=== PATIENT | female | born 2005 | race Caucasian/White ===

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

== ENCOUNTER 2023-01-03 09:00 | Outpatient (RCR) | payer OTHER, SELFPAY ==
--- NOTE | 2023-01-03 11:10 | BH.SGPN.GN ---
Behaviors/Verbalizations/Mental Status: []Client alert and oriented, casually dressed and groomed. Eye contact poor. Motor activity appropriate. Speech within normal limits. Affect constricted, mood depressed. Thoughts linear, logical, no signs of hallucinations or delusions. Client Response/Progress/Benefit: []Pt was attentive throughout AEB contributing at times to small group discussion and self-reflection. Group finished processing cues to anger worksheet. Pt worked on completing own anger cycle. Shared one of his anger cycles is being irritated by the day then thinks I hate it here. This thought prompts him to feel rage and yelling back or being purposefully hurtful to others. Pt attentive as group brainstormed healthy coping skills for better managing anger which included: music, walking/exercise, taking a break, grounding tools, reflection, and journaling. Pt worked in small groups to identify ways could interrupt his anger cycle. Pt appeared to benefit from identifying different techniques to manage anger as well as gaining awareness of potential consequences of unmanaged anger. Will continue IOP tx to improve distress tolerance, increase healthy coping, adnp revent deocompensation.
--- NOTE | 2023-01-03 11:10 | BH.SGPN.GN ---
Behaviors/Verbalizations/Mental Status: []Pt alert and oriented, casually dressed and groomed. Eye contact good. Motor activity appropriate. Speech within normal limits. Affect congruent, mood depressed and anxious. Thoughts linear, logical, no signs of hallucinations or delusions. Client Response/Progress/Benefit: []Pt responded well to session AEB contributing to discussion, taking notes, and listening attentively to others. Group discussed the benefits of managed anger and anger as a secondary emotion. Pt shared perspective on personal benefits of anger as providing a stress release and developing empathy. Pt completed worksheet on anger triggers and personal warning signs of anger. Pt identified their biggest triggers as repetitive noises, not respecting his need for space, and changes in plans. Appeared to benefit from increased knowledge of the anger cycle as well as personal triggers. Pt to continue IOP to challenge distorted thoughts, improve mood stability, and prevent decompensation. Narrative Note: []
--- NOTE | 2023-01-03 12:19 | BH.COMM ---
Communication Note Communication with Client Communication Note: Met with patient to complete initial paperwork. Complete [facility] Suicide Screening. Low to Moderate risk. Denies active SI, plan, or intent today, but pt shared within the past month he has had intrusive thoughts of not wanting to be alive. Pt denies any plan or intent. Denies hx of attempts or active plans. Protective factors include his family. Future-oriented. No history of suicide attempts. No access to firearms. Consulted with Dr. Rivera with plan to admit to [facility] level of care with dx F33.2
--- NOTE | 2023-01-03 12:20 | BH.MTP ---
Master Treatment Plan Patient Information Program Physician:: Dr. Elizabeth Rivera Primary Therapist:: ALEXANDRA Tang Estimated LOS Estimated LOS (in weeks):: 6 Problem/Goal #1 Problem/Goal #1 Stated Goal:: Will reduce irritability, emotional lability, and Depressive symptoms through increasing emotional regulation and distress tolerance skills Description of Barriers: Pt has been experiencing emotional outbursts which resulted in a tension between pt and his mother as well as increased difficulties with functioning at work. Pt reports limited emotional insight which creates additional difficulties in regulating his emotions. Functional Impact: The patient is a 17-year-old transgender male with a history of depression, bipolar disorder NOS, and anxiety who was referred to the [facility] behavioral health IOP program after being admitted to [facility] psychiatric unit from December 16 to December 22, 2022 for worsening depression over the past few months. Patient was also seen in the [facility] emergency room on December 06, 2022 and referred to the IOP program but was then admitted prior to starting the program. The patient is currently working at [employer] part-time and last worked a normal schedule about 4 weeks ago. This is a significant trigger to pt?s declining mental health as pt was recently transferred to a new location and does not like it. Shared it is more fast-paced and chaotic than previous location. 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 Reports he would often come home from work and have a meltdown with anger, agitation and suicidal ideation. This ultimately resulted in pt taking a leave of absence from college as well. At time of intake pt endorses sadness, erratic moods when stressed, lack of motivation, worthlessness, anhedonia, decreased appetite with a weight loss of 5 to 10 pounds in the last few months, low energy, decreased concentration, passive thoughts of and fleeting, passive suicidal ideation daily with no plan. He denies active suicidal ideation, homicidal ideation, hallucinations or delusions. He sometimes worries but denies panic attacks. Also denies OCD, trauma and PTSD. Patient states that he feels trapped in a box and not fully present in the moment but denies nightmares, flashbacks, or reexperiencing. Also denies eating disorder. Patient does report periods of impulsivity and increased spending along with the irritability that could be consistent with bipolar. Pt symptom severity and acuity are impacting his educational, occupational, and social functioning, as well as limiting ability to complete daily tasks. Goal Relevant Strengths/Supports: Pt is intelligent, motivated, and engaged in treatment. Pt has support from his mother and a job aiding in improving his financial security. Objectives Objective #1: Stated Objective: Pt will increase ability to manage stressors and mood instability by gaining 2-3 distress tolerance skills. Interventions: Through group and individual therapy, pt will learn various coping skills to help manage stress and mood instability. Therapist will utilize DBT distress tolerance skills to increase awareness and give pt tools to more effectively manage mood instability. Therapist will provide psychoeducation on emotional regulation and help pt identify unhealthy coping skills she wants to change. Discharge Criteria: Pt will have accomplished this goal when can report improved ability to manage stressors and identify at least 2 distress tolerance skills. Target Date: 02/10/23 Review Date: 01/25/23 Objective #2: Stated Objective: Pt will identify 2-3 depression and irritability triggers and 2 coping skills to use when feeling hopeless or irritable to manage mood instability as shown by reducing DSM-5 scores for depression and irritability. Interventions: Therapist will help pt explore personal symptoms and warning signs of depression and irritability. Therapist will teach pt coping skills to improve emotional regulation, mindfulness, and distress tolerance to help pt cope with irritability and mood changes in the moment. Discharge Criteria: Pt will have accomplished this goal when he can identify at least 2 triggers and report using 2 coping skills to manage stress and irritability. Additionally, pt will have accomplished this goal AEB reduction of DSM-5 scores for irritability and depression. Target Date: 02/10/23 Review Date: 01/25/23 Problem/Goal #2 Problem/Goal #2 Stated Goal:: Client will reduce overall frequency, intensity, and duration of anxiety to improve functioning Description of Barriers: Pt has been experiencing emotional outbursts which resulted in a tension between pt and his mother as well as increased difficulties with functioning at work. Pt reports limited emotional insight which creates additional difficulties in regulating his emotions. Functional Impact: The patient is a 17-year-old transgender male with a history of depression, bipolar disorder NOS, and anxiety who was referred to the [facility] behavioral health IOP program after being admitted to [facility] psychiatric unit from December 16 to December 22, 2022 for worsening depression over the past few months. Patient was also seen in the [facility] emergency room on December 06, 2022 and referred to the IOP program but was then admitted prior to starting the program. The patient is currently working at [employer] part-time and last worked a normal schedule about 4 weeks ago. This is a significant trigger to pt?s declining mental health as pt was recently transferred to a new location and does not like it. Shared it is more fast-paced and chaotic than previous location. 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 Reports he would often come home from work and have a meltdown with anger, agitation and suicidal ideation. This ultimately resulted in pt taking a leave of absence from college as well. At time of intake pt endorses sadness, erratic moods when stressed, lack of motivation, worthlessness, anhedonia, decreased appetite with a weight loss of 5 to 10 pounds in the last few months, low energy, decreased concentration, passive thoughts of and fleeting, passive suicidal ideation daily with no plan. He denies active suicidal ideation, homicidal ideation, hallucinations or delusions. He sometimes worries but denies panic attacks. Also denies OCD, trauma and PTSD. Patient states that he feels trapped in a box and not fully present in the moment but denies nightmares, flashbacks, or reexperiencing. Also denies eating disorder. Patient does report periods of impulsivity and increased spending along with the irritability that could be consistent with bipolar. Pt symptom severity and acuity are impacting his educational, occupational, and social functioning, as well as limiting ability to complete daily tasks. Goal Relevant Strengths/Supports: Pt is intelligent, motivated, and engaged in treatment. Pt has support from his mother and a job aiding in improving his financial security. Objectives Objective #1: Stated Objective: Client will identify 2-3 anxiety triggers and 2 calming coping skills to reduce anxiety as shown by decreased DSM-5 cross cutting symptom measure scores. Interventions: Therapist will provide education on anxiety, avoidance behaviors, and maintenance cycles. ?Therapist will help client increase awareness of anxiety triggers and educate client on the ways anxiety impacts overall health. Therapist will teach client various calming and mindfulness strategies to promote emotional regulation and reduction of anxiety. Therapist will encourage client to implement healthy coping skills on a regular basis. Discharge Criteria: Pt will have accomplished this goal when he can identify at least 2 triggers and report using 2 coping skills to manage anxiety. Additionally, pt will have accomplished this goal AEB reduction of DSM-5 scores for anxiety. Target Date: 02/10/23 Review Date: 01/25/23 Objective #2: Stated Objective: Client will identify 2-3 cognitive distortions that lead to rumination and learn 2-3 ways to manage these thoughts to better manage anxiety as shown by reduced DSM-5 scores for anxiety. Interventions: Therapist will provide education on the most common cognitive distortions and teach client the connection between thoughts, emotions, and feelings. Therapist will assist client in identifying, challenging, and replacing dysfunctional thoughts with positive, more realistic thoughts. Discharge Criteria: Pt will be able to identify and replace 2-3 cognitive distortions reinforcing anxiety. Target Date: 02/10/23 Review Date: 01/25/23
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
--- NOTE | 2023-01-03 12:21 | BH.MDN ---
Multi-Disciplinary Note Note 45-min Individual: Time Started:: 08:45 Date: 01/03/23 Purpose of session/treatment goals addressed:: To gather information on pt's current stressors, symptoms, triggers, and tx goals. Another goal was to build rapport and provide emotional support. Eye Contact:: Fair and Avoidant Motor Activity:: Appropriate Appearance:: Casual Speech:: Appropriate Mood:: Anxious and Depressed Affect:: Congruent Thoughts:: Linear, Logical and No evidence of hallucinations/delusions noted Staff Interventions:: motivational interviewing, rapport building, strengths perspective and treatment planning Client Response:: Pt responded well to session, open to meeting with therapist. Pt shared he has been struggling with mental health sx for much of his life, but has been experiencing this most recent ?episode? for the past 4 months. Denies a specific trigger for influx in symptoms, however, was able to identify several current stressors. Identified work, his relationship with his mother, someone he met in inpatient hospitalization showing up at pt?s place of employment as primary stressors. 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 Shared he does have a counselor through his job who he sees virtually and is working on maintaining consistent with daily living skills. Went on to discuss that much of the tension between he and his mother surrounds pt becoming easily overwhelmed if asked to complete a task around the house or care for his younger siblings. Additionally, shared that his mother is ?always irritable? which results in pt internalizing her irritability and assuming she is upset with pt or does not like him. Noted that this has led to an increase in what pt describes as ?meltdowns? in which he becomes angry and begins lashing out verbally and crying. Stated that during these times he is unable to control his emotions and has found limited success in trying to use emotion regulation skills during these episodes. Shared his symptoms escalated to the point of hospitalization on 12/16/22 due to suicidal ideation and sx of psychosis, which pt did not elaborate on. Did describe periods of ?blacking out? in which he does not remember. Pt shared some increase in paranoia since hospitalization, as another patient on the inpatient psych unit has been contacting pt?s place of employment and asking what shifts pt will be working. Pt shared he does not feel he needs to pursue police involvement and does not believe the individual is dangerous but does feel uncomfortable by the interactions. Indicated some worry that he is being followed while driving; however, expressed that he has a hx of similar intrusive thoughts and does not think they are related to the experience. Discussed wanting to work on improving his ability to identify, understand, and cope with his emotions. Also, discussed wanting to get back to his usual hygiene routine, engage in activities he enjoys, and better manage conflict with his mother. Risks/Concerns:: Pt reports having thoughts of , though denies any active plan or intent as of this date. Pt is future oriented. No access to weapons. Reports chronic passive thoughts. Progress Toward Goals/Plan:: Pt first day in IOP tx, so no progress to document. Pt reports his anger, anxiety and depression have impacted him for years and he is currently unable to function at baseline because of this. 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 Pt reports he spends much of his time isolating in his room. Pt has reported increased depression, apathy, irritability, and hopelessness as well. Pt will continue IOP tx to prevent decompensation, increase distress tolerance skills, and improve daily functioning. Time Stopped:: 09:30
--- NOTE | 2023-01-04 09:00 | BH.NA ---
Physical Data Vital Signs Pulse Rate: 75 Blood Pressure: 109/75 Height/Weight Height: 1.45 m Weight:: 43.998 kg Weight in Pounds: 97.0 lbs Current Medication Compliance Medication Compliance Do you take your medication as prescribed?: Yes Nutritional History Appetite Nutritional Instructions: Describe your appetite:: Poor Additional nutritional information:: Client states they have lost 15lbs in the last 2 weeks and have noted a decrease in appetite. Client states they lost 5lbs while on Trintellix for 6 days. Functional Assessment Sleep Pattern Describe any problems with sleeping: Client states they sleep between 4-8 hours per day. Activities Motor Activity:: Functional Sensory/Communication Assess Communication Problems Do you have difficulty understanding what people are saying?: No Medical Problems/History Gastrointestinal Conditions Gastrointestinal: Other (See comments) (IBS) Pain Assessment Do you have acute or chronic pain?: No Surgical History Surgical History Have you had any surgeries? If so, list type and date:: Yes (wisdom teeth removal) Substance Abuse Substance Abuse Please describe substance abuse in the last 30 days:: Client denies alcohol use. Client states they vaped nicotine in the past but denies current use. Client states they use marijuana about once every 2 weeks. Client denies regular caffeine use. Mental Status Summary Mental Status Significant Findings/Observations on Appearance and Mood:: Client is alert and oriented x 4. Client is casually groomed with good hygiene. Client is cooperative with assessment. Client makes good eye contact. Client's voice has normal rate and volume. Client appears mildly depressed and anxious. Client answers questions, but is vague with responses. Client has a restricted affect. Client makes logical associations and has normal processing. When asked about hallucinations, Client states they have seen shadows in the past 3 months, but not recently. Client reports some passive SI at times but denies plan/intent. Suicide Assessment Suicidal Ideation Are you currently or have you been suicidal in the past?: Yes (passive SI at times) Suicidal Intentional Rating Scale (SIRS): Suicidal thoughts (past) Physician Notification Past Psychiatric History MH Treatment Hx Past Psychiatric Medications:: Trintellix (took for 6 days, made them feel sick), Lexapro (caused nausea), Prozac (caused nausea), Wellbutrin (brain fog) Age of first mental health symptoms: Client states they first took medication for mental health around age 14. Client states they have had symptoms of depression for several years before that. Describe (age, circumstance, etc) any past hospitalizations: December 2022- [facility] for suicidal ideations Current providers for mental health treatment (counselor, psychiatrist, shelter case manager, etc.): has an upcoming appointment with [address] psychiatry, telehealth therapist Fall Risk Assessment Age Age: Less than 60 Mental Status Mental Status: Willing & able to ask for assistance when needed Physical Status Physical Status: No problems Impairments Impairments: None Elimination Elimination: Continent AND independent Gait or Balance Gait or Balance: Walks independently Hx of Falls History of falls in the past 6 months: No known history Medications/Substances Psychotropics:: Antipsychotics Medications/substances used within the past 24 hours or ordered to administer: 1-2 of the medications/substances listed above Total Score Total Points:: 1 RN Summary of Impressions Impressions Recommendations Impressions: Psychiatric Issues: 1. Bipolar, NOS 2. Anxiety disorder, NOS Level of Care How do the client's current symptoms and functional deficits support need for this level of care?: Client was referred to IOP by [facility] after suicidal ideations. Client states their depression has been getting worse over the last 6 months and they have been having suicidal thoughts. Client states their suicidal thoughts have not improved much since being in the hospital in early December, but states they do not have a plan/intent and thoughts are mostly passive. Client states they feel they have been disassociating from life on a regular basis over the last 6 months. Client states feelings of anhedonia and intrusive thoughts. Client states I think I just feel burnt out from being so disassociated. Client has trialed several mental health medications, and currently has been on Abilify for only a few days. IOP will promote gains and prevent further decompensation while providing social support and skills training.
--- NOTE | 2023-01-04 09:01 | BH.SGPN.GN ---
Behaviors/Verbalizations/Mental Status: [] Eye contact is poor. Motor activity is appropriate. Appearance is casual. Speech is Appropriate. Mood is depressed and anxious. Affect is constricted. Thoughts are linear and logical. No evidence of psychosis. Reviewed daily check in sheet and reports a 2/5, with 5 being severe, for suicidal ideation, and a 0/5 for suicidal intention. This is pt's baseline. Does not present as imminent risk for harm to self or others. Client Response/Progress/Benefit: [] Pt participated when prompted. Attentive. Daily symptom tracker notes 2/5 for depression and 2/5 for anxiety. Pt reported he just got a new kitten, which has been a mood boost. Pt reported he was been using opposite action to get out of the house. Pt stated his stressor is having to complete a ton of medical forms for work and school. Seemed to benefit from support from peers. Will continue in IOP to improve daily functioning, increase healthy coping, and prevent decompensation.
[2023-01-04 09:33] VITALS: BP 109/75; PULSE 75
--- NOTE | 2023-01-04 10:10 | BH.SGPN.GN ---
Behaviors/Verbalizations/Mental Status: []Client alert and oriented, casually dressed and groomed. Eye contact good. Motor activity appropriate. Speech within normal limits. Affect congruent, mood depressed and anxious. Thoughts linear, logical, no signs of hallucinations or delusions. Client Response/Progress/Benefit: []Pt engaged in session AEB listening attentively to others and providing insight to group discussion. Pt engaged in activity, able to connect how it can be uncomfortable and difficult to accept when things are out of one?s own control. Pt worked with group to identify what things in life can be hard to accept. Group identified things hard to accept as: of a loved one, body image, loss of relationship, mental health diagnosis, other?s behaviors, and past decisions. Pt worked on identifying what personal things are hard to accept for themself, sharing struggling with his mental health, how his brain processes information, finances, and needing to be on medications for a prolonged period of time are things pt struggles with accepting. Pt seemed to benefit from increased awareness of importance of acceptance. Pt to continue IOP to improve mood stability and emotional intelligence, increase application of distress tolerance skills, and prevent decompensation. Narrative Note: []
--- NOTE | 2023-01-04 11:10 | BH.SGPN.GN ---
Behaviors/Verbalizations/Mental Status: []Pt alert and oriented, neatly dressed and groomed. Eye contact good. Motor activity appropriate. Speech within normal limits. Affect congruent, mood depressed. Thoughts linear, logical, no signs of hallucinations or delusions. Client Response/Progress/Benefit: []Pt responded well to session AEB taking notes and contributing to discussion throughout. Pt engaged as group continued discussion on acceptance and the mental health benefits of practicing acceptance. Pt and peers identified what makes acceptance challenging and pt completed a self-reflection exercise on what is hard to accept in pt's life. Pt identified struggling to accept that I'll have to take medication for a long time. Group identified strategies to increase acceptance and pt shared wanting to focus on making a pros and cons list to remind self what happens if pt does not accept this. Pt appeared to benefit from gaining insight and learning strategies to increase acceptance. Pt will continue IOP tx to prevent decompensation, increase distress tolerance skills, and improve daily functioning. Narrative Note: []
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
--- NOTE | 2023-01-04 12:45 | BH.DR.ITP ---
Initial Treatment Plan Patient Information Visit Information: ADMISSION DATE: EXPECTED LOS: 4-6 weeks Problems/Symptoms Problem #1:: Mood instability Symptom:: Sadness, irritability, emotional lability, worthlessness, biological disruption of appetite and weight loss, anhedonia, low energy, decreased concentration, passive thoughts of , passive, fleeting suicidal ideation Problem #2:: Anxiety Symptom:: Rumination, worry, avoidance
--- NOTE | 2023-01-06 09:05 | BH.SGPN.GN ---
Behaviors/Verbalizations/Mental Status: [] Eye contact is good. Motor activity is appropriate. Appearance is casual. Speech is Appropriate. Mood is depressed. Affect is congruent. Thoughts are linear and logical. No evidence of psychosis. Reviewed daily check in sheet and no reports of suicidal ideations or intent. Client Response/Progress/Benefit: [] Pt participated when prompted. Attentive. Daily symptom tracker notes 4/5 for depression, 3/5 for self-harm urges, and 3/5 for anxiety/irritability. Check-in was brief and somewhat vague. Reports unstable and erratic mood, however again did not elaborate. Primary stressor centers around her college courses stating I just stopped going to school due in large part to her mental health. She has been in contact with her professors. Limited engagement and progress noted in first group. Benefited from group support, encouragement, and feedback. Will continue in IOP to maintain safety, stabilize mood, and prevent decompensation/re-admission to psych unit. Narrative Note: []
--- NOTE | 2023-01-06 10:03 | BH.SGPN.GN ---
Behaviors/Verbalizations/Mental Status: [] Client alert and oriented, neatly dressed and groomed. Eye contact good. Motor activity appropriate. Speech within normal limits. Affect flat, mood dysthymic. Thoughts linear, logical, no signs of hallucinations or delusions. Client Response/Progress/Benefit: [] Client's first week in program and getting adjusted to group environment. Client attentive in group discussion and experiential activity. Attentive during psychoeducation on resilience. Participated in interactive discussion with peers on the definition of resilience and where it comes from. Group identified that resiliency can be impacted by; past experiences, physical and mental health status, and supports. Able to relate experiential activity of group juggle to topics of resilience. Worked well with peers in small group in which they identified factors that contribute to resilience. Benefited from increased awareness of resilience and the factors that contribute to building resilience. Will continue in IOP to increase overall functioning and prevent decompensation. Narrative Note: []
--- NOTE | 2023-01-06 11:13 | BH.SGPN.GN ---
Behaviors/Verbalizations/Mental Status: [] Client alert and oriented, neatly dressed and groomed. Eye contact good. Motor activity appropriate. Speech within normal limits. Affect flat, mood dysthymic. Thoughts linear, logical, no signs of hallucinations or delusions Client Response/Progress/Benefit: [] Client responded well to session and is still adjusting to group environment with it being their first week in program. AEB completing the resilience worksheet provided and actively participated in the discussion and worked cooperatively with group to identify strategies to enhance each of the components discussed. Client reports belief they already use resilience trait of ?avoid seeing crises as insurmountable problems.? Client discussed that they could work on self awareness. Client outlined their plan to start identifying feelings each day and asking trusted supports for their opinions. Client seemed to benefit from discussing strategies for improving personal resilience and identifying resilience traits client already possesses. Will continue IOP tx to increase healthy coping skills and prevent decompensation. Narrative Note: []
== END 2023-01-09 23:59 ==
LOC: BHIOP 09:00
PROVIDERS: PCP Pediatrics; Referring Provider Psychiatry & Neurology Psychiatry; Visit Provider Psychiatry & Neurology Psychiatry
DX: F33.2 Major depressive disorder, recurrent severe without psychotic features (principal)
CPT/HCPCS: S9480; 90834; 90853

== ENCOUNTER 2023-01-10 07:19 | Outpatient (RCR) | payer OTHER, SELFPAY ==
[2023-01-10 00:26] VITALS: BP 109/75; PULSE 75
--- NOTE | 2023-01-10 09:05 | BH.SGPN.GN ---
Behaviors/Verbalizations/Mental Status: [] Pt alert and oriented, neatly dressed and groomed. Eye contact good. Motor activity appropriate. Speech within normal limits. Affect congruent, mood euthymic. Thoughts linear, logical, no signs of hallucinations or delusions. Reviewed pt?s symptom tracker, no risk for suicidal ideation, plan, or intent 01/10/23 Client Response/Progress/Benefit: []Pt responded well to session, attentive and engaged. Pt reports feeling thrilled this morning as has a concert tonight that he is looking forward to. Pt stated he is a little nervous, but it is a positive feeling. Pt's second mental health win today is that he was able to regulate his emotions while spending time with family. Pt appeared to benefit from reflecting on their application of coping skills. Pt will continue IOP tx to prevent decompensation, improve daily functioning, and increase emotional regulation skills. Narrative Note: []
--- NOTE | 2023-01-10 10:05 | BH.SGPN.GN ---
Behaviors/Verbalizations/Mental Status: [] Eye contact is good. Motor activity is appropriate. Appearance is casual. Speech is Appropriate. Mood is depressed. Affect is flat. Thoughts are linear and logical. No evidence of psychosis Client Response/Progress/Benefit: [] Pt participated at times during group discussions. Attentive during psychoeducation on 4 Communication Styles (Passive, Passive-Aggressive, Aggressive, Assertive). Convened in small group and participated during interactive discussion on benefits and disadvantages of each communication style. Majority of this group was based in introducing and educating on communication styles. Pt choose not to share when asked about communication styles he most often utilizes. Benefited from increased education and awareness on communication styles and their impact on relationships/mental health. Will continue in IOP to prevent decompensation/re-admission to psych unit, maintain safety, and to increase healthy coping. Narrative Note: []
--- NOTE | 2023-01-10 11:10 | BH.SGPN.GN ---
Behaviors/Verbalizations/Mental Status: []Client alert and oriented, casually dressed and appropriately groomed. Eye contact fair. Motor activity appropriate. Speech WNL. Affect constricted, mood anxious. Thoughts linear, logical, no signs of hallucinations or delusions. Client Response/Progress/Benefit: []Client responded well to session AEB client listening attentively to others and providing input during group discussion on the pay offs and costs of the different communication styles. Client able to connect how current communication style impacts mental health. Client engaged in activity, used assertive communication throughout in order to accomplish task. Connected with peers comments about importance of using assertive communication. Client shared he struggles with disorganized communication. Client reported he wants to work on scripting basic conversations, practice in the mirror, and take his medication. Client seemed to benefit from increasing awareness of healthy strategies to improve communication. Will continue IOP tx to challenge distorted thoughts, decrease anxiety, and prevent decompensation.
--- NOTE | 2023-01-13 08:55 | BH.MDN ---
Multi-Disciplinary Note Note 30-min Individual: Time Started:: 09:30 Date: 01/13/23 Purpose of session/treatment goals addressed:: Purpose of session was to begin working with pt on improving understanding of Bipolar diagnosis, additionally began identifying pt common warning signs for changes in mood. Eye Contact:: Good Motor Activity:: Appropriate Appearance:: Casual Speech:: Appropriate Mood:: Euthymic and Anxious Affect:: Congruent Thoughts:: Linear, Logical and No evidence of hallucinations/delusions noted Staff Interventions:: motivational interviewing, psychoeducation on: (Bipolar disorder common symptoms for tim and depressive episodes.), rapport building and strengths perspective Client Response:: Pt responded well to session, actively engaged, and openly discussed current thoughts, symptoms, and stressors. Pt reports recently meeting with his outpatient psychiatrist and they had decided to pursue testing for ADHD, Autism, and Bipolar Disorder. Pt shared beliefs that ?autism could be a good fit for me based on how I process things?. Shared he has thought this for some time based on his sensitivity to sensory stimuli, becoming easily overwhelmed around others, and difficulties in understanding and identifying his emotions. Shared that he has used various coping tools such as a weighted blanket and ear plugs to aid in better managing his emotions and preventing feelings of being overwhelmed. Pt went on to discuss working to better identify his own emotions, sharing that most of the time he feels he is just guessing and would like to get to a place where he is able to recognize what he is feeling. Shared that he is able to identify irritability, but often is not able to recognize his warning signs in the moment. Shared feeling connected to the potential Bipolar diagnosis as he has a strong family history of bipolar disorder and reports seeing a lot of the symptoms his grandmother exhibits in himself. Described periods of depression, followed by times of increased irritability, or periods in which he feels like a ?actual God on earth?. Discussed with pt the benefits of beginning to work improving overall emotional intelligence and better understanding his specific warning signs for changes in mood can begin to improve pt?s ability to manage his emotions. Pt receptive of reviewing common symptoms associated with bipolar disorder, looking at which specific symptoms typically are associated with a depressive episode vs. manic episode. Pt provided with a handout on these common symptoms and instructed to work with his supports to identify the specific symptoms he most commonly exhibits. Risks/Concerns:: None noted. Pt denies any suicidal ideation, plan, or intent as of this date 01/13/23. Future oriented and protective factors noted. Progress Toward Goals/Plan:: Some progress noted. Pt reports improved comfort in the group environment and has found hearing other participant's experiences and struggles has been helpful so far. Shared making progress in better adjusting to his new work environment and accepting his need for different accommodations to best promote self-regulation when feeling overwhelmed at work. Reports wanting to work on better understanding his emotions and learning to process and cope with them in healthier ways. Pt continues to struggle with irritability, emotional outburst creating interpersonal tension, avoidance, and low motivation. Will continue IOP tx to improve mood stability, promote healthy coping application, and prevent decompensation. Time Stopped:: 10:02
--- NOTE | 2023-01-13 10:15 | BH.SGPN.GN ---
Behaviors/Verbalizations/Mental Status: []Pt alert and oriented, neatly dressed and groomed. Eye contact fair. Motor activity appropriate. Speech within normal limits. Affect constricted, mood depressed. Thoughts linear, logical, no signs of hallucinations or delusions. Client Response/Progress/Benefit: []Pt was an active?participant in small group discussion. Pt?s group worked together to identify benefits of healthy relationships which include; feelings of belonging, safety, and support. Group identified factors that lead to unhealthy relationships. Pt?s personal factors included not feeling ?comfortable in the healthy relationships.? Actively participated in group experiential activity and expressed ideas to group. Benefited from increased insight and awareness of benefits of healthy relationships and factors that contribute to unhealthy relationships. Will continue IOP tx to prevent decompensation, improve emotional regulation skills, and reduce negative thinking patterns. Narrative Note: []
--- NOTE | 2023-01-13 11:10 | BH.SGPN.GN ---
Behaviors/Verbalizations/Mental Status: [] Client alert and oriented, casually dressed and groomed. Eye contact good. Motor activity appropriate. Speech within normal limits. Affect congruent, mood dysthymic, anxious. Thoughts linear, logical, no signs of hallucinations or delusions. Client Response/Progress/Benefit: [] Client responded well to session, engaged and taking notes. Worked with group to identify characteristics of healthy and unhealthy relationships. Attentive during psychoeducation about characteristics of healthy, unhealthy, and abusive relationships. Client stated within their current relationships he does well with respect. Client reported an area he would like to improve in is communication and blaming others. Client shared he could so by working to share when agitated more consistently with supports. Appeared to benefit from identifying area client wants to work on to build healthier relationships. Client to continue IOP to increase healthy coping skills, challenge distortions, and prevent decompensation. Narrative Note: []
--- NOTE | 2023-01-16 09:01 | BH.SGPN.GN ---
Behaviors/Verbalizations/Mental Status: []Pt alert and oriented, casually dressed and groomed. Eye contact fair to good. Motor activity appropriate. Speech within normal limits. Affect congruent, mood depressed and irritable. Thoughts linear, logical, no signs of hallucinations or delusions. Reviewed pt?s symptom tracker, suicidal ideation reported as 1/5 which is within pt baseline, denies plan, or active intent as of 01/16/23. Client Response/Progress/Benefit: []Pt responded well to session, open to processing with group and engaged. Pt reports feeling irritated this morning. Shared this is related to trying to quit smoking which is both a win and stressor. Receptive of group suggestions on what may help with urges to smoke. 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 Pt appeared to benefit from supportive feedback of the group, as well as reflecting on mental health wins. Pt will continue IOP tx to promote mood stability, improve distress tolerance, and continue to improve functioning. Narrative Note: []
--- NOTE | 2023-01-16 10:15 | BH.SGPN.GN ---
Behaviors/Verbalizations/Mental Status: []Eye contact is fair. Motor activity is appropriate. Appearance is casual. Speech is Appropriate. Mood is anxious. Affect is congruent. Thoughts are linear and logical. No evidence of psychosis. Client Response/Progress/Benefit: []Pt participated during the group discussion. Attentive during psychoeducation and actively engaged during experiential activity. Participated during interactive discussion on aspects of fixed mindset. Group identified several aspects of fixed mindset which include: inflexible, belief that one cannot grow, absolute thinking, and all of one's skills, traits, and behaviors can't change. Group identified personal examples of fixed thinking in which pt shared personal fixed thoughts as: everyone hates me, and none of this would've happened if I stayed home. Benefited from increased understanding of personal fixed mindsets and how they can impact mental health. Will continue in IOP to increase confidence, decrease negative thinking, and prevent decompensation.
--- NOTE | 2023-01-16 11:15 | BH.SGPN.GN ---
Behaviors/Verbalizations/Mental Status: []Pt alert and oriented, neatly dressed and groomed. Eye contact fair. Motor activity appropriate. Speech within normal limits. Affect congruent, mood depressed. Thoughts linear, logical, no signs of hallucinations or delusions. Client Response/Progress/Benefit: []Pt was an active participant during activity and discussion AEB providing some input, connecting with peers, as well as taking notes throughout. Pt did well to engage as group worked on identifying characteristics and benefits of adopting a growth mindset. Worked with fellow participants in reframing the example fixed thoughts into growth mindset thoughts. Pt worked on changing own fixed thought of ?everyone hates me ? to growth thought of ?there?s no evidence to support this.? Benefitted from discussing benefits of growth mindset and brainstorming strategies for prompting growth-mindset. Pt appeared to benefit from working in small groups to challenge own thoughts and help peers. Pt will continue IOP tx to prevent decompensation, improve use of healthy coping skills, and reduce negative thought patterns. Narrative Note: []
--- NOTE | 2023-01-18 10:00 | BH.SGPN.GN ---
Behaviors/Verbalizations/Mental Status: [] Eye contact is good. Motor activity is appropriate. Appearance is casual. Speech is Appropriate. Mood is depressed. Affect is flat. Thoughts are linear and logical. No evidence of psychosis. Reviewed daily check in sheet and no reports of suicidal ideations or intent. Client Response/Progress/Benefit: [] Pt participated when prompted. Attentive. Daily symptom tracker notes 3/5 for anxiety and 2/5 for depression. Emotion for today is chillin. Shared that mental health win was getting here today. Discussed her struggles in the AM with mood and being tired. Overall she reports improvement in managing her depression, stress, and anxiety. She is looking forward to a couple of upcoming events. Stressors are currently related to her car and finances. Utilizing skills. Progress noted per pt report as her mood is improving. Benefited from group support, encouragement, and feedback. Will continue in IOP to maintain safety, prevent decompensation/re-admission, and to increase healthy coping. Narrative Note: []
--- NOTE | 2023-01-18 10:15 | BH.SGPN.GN ---
Behaviors/Verbalizations/Mental Status: []Pt alert and oriented, neatly dressed and groomed. Eye contact good. Motor activity appropriate. Speech within normal limits. Affect flat, mood depressed. Thoughts linear, logical, no signs of hallucinations or delusions. Client Response/Progress/Benefit: [] Pt receptive to session AEB contributing to discussion, as well listening attentively to others, and taking notes. Worked with group to brainstorm the positive and negative aspects of stress on physical and mental health. Group did well to identify the benefits of stress as well as the impact of distress on performance, relationships, and mental health. Pt identified their personal top stressors as: things cost a lot of money, their cat?s health, mental health, and work stress. Pt seemed to benefit from increased awareness of current stressors and impact stress has on mental health. Recommended to continue IOP tx to prevent decompensation, improve daily functioning, and increase self-compassion. Narrative Note: []
--- NOTE | 2023-01-18 11:15 | BH.SGPN.GN ---
Behaviors/Verbalizations/Mental Status: [] Eye contact is good. Motor activity is appropriate. Appearance is casual. Speech is Appropriate. Mood is anxious and content. Affect is congruent. Thoughts are linear and logical. No evidence of psychosis. Client Response/Progress/Benefit: []Pt was an active participant in group discussions and experiential activity. Attentive during psychoeducation on the 4 A's (Avoid, adapt, alter, accept) of coping with stress as well as strategies to identify stressors in which one has no control, little control, or a great deal of control over. Shared that he would benefit most from working on adapting his mindset and practicing more acceptance in regards to coping with his mental health struggles and symptoms. Was able to identify the connection between the experimental activity and utilization of stress management skills. Benefited from increased awareness of stress management strategies. Will continue in IOP to promote mood stability, prevent decompensation, and to increase healthy coping skill application. Narrative Note: []
--- NOTE | 2023-01-20 10:10 | BH.SGPN.GN ---
Behaviors/Verbalizations/Mental Status: []Eye contact is good. Alert and oriented. Motor activity is appropriate. Appearance is casual. grooming is appropriate. Speech is Appropriate. Mood is euthymic and anxious. Affect is congruent. Thoughts are linear and logical. No evidence of psychosis or hallucinations. Client Response/Progress/Benefit: []Client was an active participate AEB providing contributions, listening attentively to others, and taking notes throughout. The group identified the impact of emotions on communication such as change in tone, body language, shutting down, misperceiving the communication, and not being able to express oneself. During group activity, client identified feeling amused when the group began experiencing increased stress. Shared they often resort to humor in stressful situations which is insightful. Client benefited from session by gaining an increased understanding on the importance of managing emotions to improve daily functioning. Client will continue IOP to further promote mood stability, improve use of skills for better symptom management and recognition, and prevent decompensation. Narrative Note: []
--- NOTE | 2023-01-20 11:10 | BH.SGPN.GN ---
Behaviors/Verbalizations/Mental Status: []Pt alert and oriented, casually dressed and groomed. Eye contact fair. Motor activity appropriate. Speech within normal limits. Affect constricted, mood euthymic. Thoughts linear, logical, no signs of hallucinations or delusions. Client Response/Progress/Benefit: [] Pt engaged in session AEB Pt listening attentively to peers and providing input. Attentive during psychoeducation on 4 zones of regulation. Pt able to identify feelings and behaviors for each zone. Pt identified coping skills one can use to support self in each zone. Pt reports majority of the time he is in the blue zone. Reported skills can practice when needs to manage emotions in the yellow zone include: talking to support system, opposite action, hot shower, and listening to music. Benefited from increased education on zones of regulation or stages of alertness for emotions and healthy coping skills to use for each zone. Will continue IOP tx to increase healthy coping, challenge distortions, and prevent decompensation.
--- NOTE | 2023-01-20 14:14 | BH.MDN ---
Multi-Disciplinary Note Note 30-min Individual: Time Started:: 09:23 Date: 01/20/23 Purpose of session/treatment goals addressed:: Purpose of session was to increase pt awareness of triggers for emotion dysregulation and identify distress tolerance skill pt may incorporate in the workplace. Eye Contact:: Good Motor Activity:: Appropriate Appearance:: Casual Speech:: Appropriate Mood:: Anxious Affect:: Congruent Thoughts:: Linear, Logical and No evidence of hallucinations/delusions noted Staff Interventions:: motivational interviewing, CBT techniques, strengths perspective, taught coping skills (reviewed grounding/distress tolerance skills of 5 senses, deep breathing) and other (created a workplace sensory coping plan) Client Response:: Pt receptive of session, openly discussed current symptoms and stressors impacting mental health. Pt shared he has been feeling more anxious, ?like I?m going to jump out of my skin?, over the past few days. Noted that in discussing his symptoms with his mother he was able to identify that his increased anxiety may be due to not getting enough sleep lately. Shared continued struggles with adjusting his bedtime on nights he has IOP tx the next day, often getting around 5 hours of sleep those nights. Did indicate trying progressive muscle relaxation on a few occasions to aid in falling asleep and found this to be helpful, plans to increase consistency in his nighttime routine. Went on to indicate his greatest stressor currently is work. Pt self-reports poor self-care throughout his work shift due to focusing on keeping up with the fast paced nature of his new location. Explained forgetting to take breaks of drink water on several occasions. Pt noted that he then becomes overwhelmed and overstimulated, resulting in breaking down. Disclosed being set home early during a shift this week due to emotional dysregulation. Shared that the fast paced atmosphere and things being out of place throughout the shift led pt to become confused and emotionally overwhelmed. Discussed trying to take a break but he had already been in a state of panic that he was not able to regulate himself. Worked with therapist to begin identifying occupational triggers and accommodations he may benefit from. Pt shared being on the same station for too long, not knowing what is going on, and things being messy or out of place as pt?s primary triggers. Pt identified having the ability to rotate stations, wearing an ear plug in the ear he does not have his headset on, walking to the back to take a few deep breaths, wearing a compression shirt, and stimming would all be helpful. 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 Pt noted that one contributing factor for his emotion dysregulation as not always recognizing when he is experiencing the early warning signs for a change in emotion. Receptive of beginning a daily mood tracker to increase emotional awareness as well. Risks/Concerns:: None noted. Pt denies any suicidal ideation, plan, or intent as of this date 01/20/23. Progress Toward Goals/Plan:: Progress remains variable. Pt reports he has had an improved overall mood and is finding the groups to be helpful. He has been taking steps to better understand and identify his emotions which is beginning to improve pt ability to regulate. However, pt continues to significantly struggle with noticing when he is becoming dysregulated and applying skills in the moment. Reports continued anxiety, mood swings, and difficulties managing stress. Will continue IOP tx to improve mood stability, increase consistent skill application and emotional awareness, and prevent decompensation. Time Stopped:: 09:53
--- NOTE | 2023-01-25 09:05 | BH.SGPN.GN ---
Behaviors/Verbalizations/Mental Status: [] Pt alert and oriented, neatly dressed and groomed. Eye contact good. Motor activity restless. Speech within normal limits. Affect flat, mood frustrated. Thoughts linear, logical, no signs of hallucinations or delusions. Reviewed pt?s symptom tracker, no risk for suicidal ideation, plan, or intent 01/25/23 Client Response/Progress/Benefit: []Pt responded well to session, quiet, but participating. Pt reports feeling frustrated this morning. Pt feels he has slipped back into old patterns at work and feels that maybe it is just not a good environment for him. Pt reports trying to utilize 5-senses and deep breathing, but it only works for a short period of time. Pt has been finding benefit from using his weighted blanket at home which has helped pt get better sleep which could help pt function better at work. Pt shared his goal is to find a different job and pt hopes this will resolve some of his mental health symptoms. Pt will continue IOP tx to promote mood stability, increase emotional regulation skills, and further improve daily functioning. Narrative Note: []
--- NOTE | 2023-01-25 10:10 | BH.SGPN.GN ---
Behaviors/Verbalizations/Mental Status: [] Client alert and oriented, casually dressed and poorly groomed. Eye contact fair. Motor activity appropriate. Speech within normal limits. Affect constricted, mood anxious. Thoughts linear, logical, no signs of hallucinations or delusions. Client Response/Progress/Benefit: []Client was a mostly passive participant in group session AEB no contributions, however did appear to listen attentively to others. Attentive during psychoeducation on coping skills, why people use unhealthy coping skills, and how to replace unhealthy coping skills. Group came up with list of negative coping skills that included substance use, avoidance, lashing out, and escaping from reality. Group discussed the effects of how negative coping skills can impact mental health in a negative way. Benefited from increased understanding of unhealthy coping skills and the need for developing healthy interna and external coping skills. client will continue IOP tx to increase consistent use of skills, challenge distorted/negative thinking, and prevent decompensation.
--- NOTE | 2023-01-25 12:12 | PCM.BH.PN ---
Progress Note Progress Note: History of Present Illness/Interim History: The patient is a 17-year-old transgender male (biological female) with a history of depression, bipolar disorder and anxiety who is seen in follow-up at the [facility] behavioral health IOP program. I last saw the patient 2 weeks ago and at that time no medication changes were made as she had been started on Abilify 2 days earlier. The patient states that he is a little better than before starting the program. He feels he is really benefiting from the IOP. The patient is working at the [employer] job that he dislikes and for this reason feels that he is dissociating more lately than he was before. He is looking for a new job and has applied to [employer]. He is still having occasional meltdowns and anger outbursts. He still endorses passive thoughts of and fleeting, passive suicidal ideation but less so than before. He denies active suicidal ideation, plan for suicide, homicidal ideation, hallucinations or delusions. Current Psychiatric Medications: [] Abilify 5 mg p.o. daily (increased 1 week ago by outpatient provider from 2 mg) Mental Status Examination: [] The patient is a 17-year-old biological female who appears as a petite female in appearance with a medium length hair which is colored green. She has nose piercings x2 and a lip piercing and clothing appears feminine. She is ambulatory with a normal gait and casually dressed and groomed with good hygiene. There is no psychomotor agitation or retardation. The patient is cooperative during the interview. Eye contact is somewhat decreased as the patient continues to look down a lot. Speech is normal rate and rhythm and fluent with no pressure. Mood is depressed. Affect is constricted. Thought process is goal-directed and organized. Thought content: There is evidence of passive thoughts of and fleeting, passive suicidal ideation. There is no evidence of active suicidal ideation, homicidal ideation, hallucinations, delusions or symptoms of tim. Reality testing is intact. Judgment is intact. Intelligence is average. Insight is limited. Impulsivity is moderate to high. Diagnoses: [] 1. Bipolar, NOS 2. Anxiety disorder, NOS 3. Cluster B traits 4. Primary support, work and school issues Plan: [] The patient will continue the IOP program at [facility] as the structure, support, education and group therapy will hopefully prevent worsening of the patient's symptoms which could require rehospitalization. The patient felt safe during the interview and if it anytime he does not feel safe he will let us know or go to the emergency room. The risks, options, possible complications and side effects of the medications were again discussed with the patient and he understands and accepts these. No medication changes were made today as the Abilify was increased 1 week ago to 5 mg. I will see the patient in follow-up in 2 weeks and he will continue to follow-up with outpatient providers.
--- NOTE | 2023-01-26 11:15 | BH.SGPN.GN ---
Behaviors/Verbalizations/Mental Status: [] Client alert and oriented, neatly dressed and groomed. Eye contact good. Motor activity appropriate. Speech within normal limits. Affect congruent, mood content. Thoughts linear, logical, no signs of hallucinations or delusions. Client Response/Progress/Benefit: [] Client responded well to session AEB taking notes and providing input and examples throughout. Group discussed the different categories of coping skills which included distraction, emotional release, grounding, self-love, and thought challenging. Client created a coping skill menu identifying various skills to try in each category. Client?s coping skill menu included: art, ballet, rolling around, mindful eating, setting boundaries, and putnam mind. Appeared to benefit from increasing repertoire of healthy coping skills. Client will continue IOP tx to continue to improve daily functioning, reduce thought patterns that lead to anxiety and increase distress tolerance skills application. Narrative Note: []
--- NOTE | 2023-01-27 11:10 | BH.SGPN.GN ---
Behaviors/Verbalizations/Mental Status: []Eye contact is good. Motor activity is appropriate. Appearance is casual. Speech is Appropriate. Mood is euthymic. Affect is congruent. Thoughts are linear and logical. No evidence of psychosis. Client Response/Progress/Benefit: []Pt was an active participant in group discussions and experiential activity. Attentive during psychoeducation. Pt participated during interactive discussion on strategies to overcome several obstacles to mental wellness including emotional dysregulation, catastrophizing, and issues with job. Pt choose the barrier of dysregulation to work on this week and identified strategies to incorporate including continuing to practice mindfulness skills. Benefited from increased awareness of obstacles to mental wellness and strategies to help overcome those obstacles. Will continue in IOP to promote mood stability, increase use of healthy coping skills, and improve daily functioning. Narrative Note: []
--- NOTE | 2023-01-27 15:20 | BH.MDN_ITS ---
Multi-Disciplinary Note Note 45-min Individual: Time Started:: 09:30 Date: 01/27/23 Purpose of session/treatment goals addressed:: Purpose of session was to address tx plan goals #1. Additionally aided pt in problem solving a current stressor. Eye Contact:: Good Motor Activity:: Appropriate Appearance:: Casual Speech:: Appropriate Mood:: Euthymic and Anxious Affect:: Congruent Thoughts:: Linear, Logical and No evidence of hallucinations/delusions noted Staff Interventions:: thought challenging, motivational interviewing, CBT techniques, strengths perspective and other (Completed occupational cost/benefit analysis) Client Response:: Pt receptive of session, openly discussed current symptoms and stressors impacting mental health. Pt shared he has been considering quitting his current job and finding another due to ongoing difficulties with managing the fast paced and often overstimulating environment of his current job. Pt shared that he had a recent experience where he shut down at work and although he was able to continue to complete the shift he felt guilty and exhausted as a result. Explained that although another job may be a better fit, he is still uncertain as he would lose the free schooling benefit his current employer provides. Shared that he could potentially apply for a position at [employer] as they also provide tuition support, however this means he would be required to transfer to a school in their tuition assistance program. Pt receptive of reviewing the pros and cons of staying in his current job vs leaving. 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 Pt went on to discuss that he is making progress with more regular self-care via consistently completing his oral and skin-care routines. Reported an additional stressor as finances as his car is currently in the shop and he is unsure of how much this will cost for pt to fix. Shared that he would like to ask his parents for assistance but fears they will think he is taking advantage of them or irresponsible. Did well to work with t herapist to challenge these thoughts and was able to recognize that it is his grandparent?s responsibility to communicate their boundaries and express if they do not want to or are unable to provide patient with additional financial assistance. Reports plans to discuss occupational needs and financial needs with his respective supports. Risks/Concerns:: Pt denies any suicidal ideation, plan, or intent as of this date 01/27/23. Progress Toward Goals/Plan:: Progress remains variable. Pt reports he has had an improved overall mood and is finding he is able to better manage unexpected stressors outside of work; however, pt continues to struggle with this occupationally. He has been taking steps to more consistently complete his daily personal hygiene routines which he believes has aided in improving his mood as well. Reports continued anxiety and difficulties managing occupational stress. Will continue IOP tx to improve mood stability, increase consistent skill application and communication with supports and self-advocacy of his mental health and occupational needs, and prevent decompensation. Time Stopped:: 10:10
--- NOTE | 2023-01-31 10:10 | BH.SGPN.GN ---
Behaviors/Verbalizations/Mental Status: []Eye contact is good. Motor activity is appropriate. Appearance is casual. Speech is Appropriate. Mood is euthymic. Affect is congruent. Thoughts are linear and logical. No evidence of psychosis. Client Response/Progress/Benefit: []Pt was an active participant in group discussions. Engaged and provided feedback with group on defining anxiety. Along with peers, pt worked to identify the benefits of anxiety. Participated during interactive discussion on how anxiety impacts one physically, cognitively, and behaviorally. Completed worksheet on how anxiety impacts pt physically, cognitively, and behaviorally. Pt shared physically pt experiences increased heart rate, poor concentration, and restlessness. Benefited from increased insight into anxiety's benefits and how diagnosable anxiety impacts functioning. Will continue in [facility] tx to promote work-related functioning and further increase mood stability. Narrative Note: []
--- NOTE | 2023-01-31 15:14 | BH.MDN ---
Multi-Disciplinary Note Note 45-min Individual: Time Started:: 11:43 Date: 01/31/23 Purpose of session/treatment goals addressed:: Purpose of session was to address tx plan goal 1 obj 1 and goal 2 obj 1. Additionally discussed discharge. Eye Contact:: Good Motor Activity:: Appropriate Appearance:: Casual Speech:: Appropriate Mood:: Euthymic and Anxious Affect:: Congruent Thoughts:: Linear, Logical and No evidence of hallucinations/delusions noted Staff Interventions:: psychoeducation on: (Anxiety maintenance cycles), mindfulness skills, discharge planning, strengths perspective and taught coping skills Client Response:: Pt receptive of session, actively engaged throughout. Reported connecting with group topic of Anxiety. Shared that he has significant difficulties in applying anxiety management skills in the moment when overwhelmed or stressed out at work. Reports he can only really remember skills of progressive muscle relaxation and deep breathing. Pt shared he has not yet heard back from [facility] about his application and would therefore be interested in learning more skills for managing his anxiety in the moment, specifically when in the workplace. Worked with therapist to identify specific physical and cognitive warning signs/symptoms he notices when experiencing increased stress or anxiety in the workplace. Pt identified tunnel vision or focusing on everything at once, reduced concentration, a sense of urgency, restlessness, and feeling like he is going to come out of his own skin. Responded well to reviewing the difference between mind-based and body-based coping skill for anxiety. Discussed use of exercise, stretching, physical pressure such as a hug or holding books, or deep breathing alongside a visual prompt to address physical anxiety symptoms. Pt shared he could go to the back room at work and complete various ballet exercises, stretch, as well as look into the various guided breathing exercises on his [employer] [email or web address]. Therapist reviewed mindfulness skills such as 5-sense skill using an anchor item rather than several objects, filling and emptying meditations, connection with the earth, and guided imagery to aid in grounding pt while at work as well. Plans to try at least one new skill each time he works over the next week. Connected with practicing calming skills before and after each shift to maintain regulated as well. Shared feeling he has gained much insight and new skills since beginning IOP tx, feels his mood is more stable, and perspective more hopeful. Given progress, pt reports readiness to d/c from [facility] level of care next week and continue with outpatient counselor and psychiatrist at [place] [id number]. Risks/Concerns:: None noted. Pt denies SI, plan, or intent as of this date, 01/31/23. Progress Toward Goals/Plan:: Progress noted. Pt reports improved mood and perspective since beginning IOP tx. Is more consistently practicing skills for managing his emotions as well as consistently self-reflecting on his mood. Pt reports increased communication with his mother about his mental health as well. Does continue to struggle with anxiety and emotion regulation when feeling overstimulated. Receptive of reviewing several skills for improving emotion regulation and distress tolerance. Shared feeling he has gained much insight and new skills since beginning IOP tx, feels his mood is more stable, and perspective more hopeful. Given progress, pt reports readiness to d/c from [facility] level of care next week and continue with outpatient counselor and psychiatrist at [place] [id number]. Time Stopped:: 12:30
--- NOTE | 2023-02-01 09:00 | BH.SGPN.GN ---
Behaviors/Verbalizations/Mental Status: []Pt eye contact good, neat and casually dressed, motor activity appropriate, speech normal rate and tone, mood calm, congruent affect, thoughts linear and intact, no evidence of delusions or hallucinations. Per pt's symptom tracker, no risks noted. Client Response/Progress/Benefit: []Pt responded well to session, attentive and engaged. Pt reports feeling neutral this morning and pt shared that things have been going well for him lately. Pt reflected that this is both positive and a stressor because pt's anxious brain is predicting that something bad has to happen soon. Pt receptive to thought challenging strategies and able to see how it is normal for our brains to jump to conclusions, but they can be challenged. Pt stated he wants to work on combating his what if thinking patterns. Pt appeared to benefit from practicing in the moment coping skills. Pt will continue IOP tx to promote mood stability, increase emotional regulation skills, and improve daily functioning. Narrative Note: []
--- NOTE | 2023-02-01 10:10 | BH.SGPN.GN ---
Behaviors/Mental Status: [] Eye contact is fair. Motor activity is appropriate. Appearance is casual. Speech is Appropriate. Mood is anxious. Affect is congruent. Thoughts are linear and logical. No evidence of psychosis. Client Response/Progress/Benefit: [] Pt engaged participant AEB listening attentively to others, taking notes, and providing input at times. Participated in and was engaged during experiential activity. Engaged during interactive discussion on what failure means to the group in which peers identified that failure is ... not meeting expectations, not having a desired outcome, and not succeeding in a task. Group was able to identify impact of fear of failure. Client stated fear of failure has led him to not try new things and causes him to stay stuck. Attentive during interactive discussion on the role that FOF plays in mental wellness, depression, anxiety, and growth. Benefited from increased awareness of how the role that FOF plays in mental health and decision-making. Will continue in IOP to continue use of healthy coping, decrease anxious symptoms, and prevent decompensation.
--- NOTE | 2023-02-01 11:10 | BH.SGPN.GN ---
Behaviors/Verbalizations/Mental Status: []Pt alert and oriented, casually dressed and groomed. Eye contact good. Motor activity appropriate. Speech within normal limits. Affect congruent, mood anxious and euthymic, agitated. Thoughts linear, logical, no signs of hallucinations or delusions. Client Response/Progress/Benefit: [] Pt responded well to session, engaged in the experiential activity and attentive throughout group processing. Pt reported fear of failure has kept Pt from creating healthy friendships. Pt completed fear of failure worksheet and was able to identify thoughts and behaviors that reinforce personal fear of failure including: overloading his cup, self-doubt, and isolation. Pt participated in group discussion regarding strategies to overcome fear of failure. Identified wanting to work on starting to improve positive self-talk. Appeared to benefit from increased knowledge of strategies to combat fear of failure and gaining self-awareness. Pt will continue IOP tx to improve mood stability, improve consistent application of calming skills, and prevent decompensation. Narrative Note: []
--- NOTE | 2023-02-03 09:00 | BH.SGPN.GN ---
Behaviors/Verbalizations/Mental Status: [] Pt alert and oriented, neatly dressed and groomed. Eye contact good. Motor activity appropriate. Speech within normal limits. Affect flat, mood calm. Thoughts linear, logical, no signs of hallucinations or delusions. Reviewed pt?s symptom tracker, no risk for suicidal ideation, plan, or intent 02/03/23 Client Response/Progress/Benefit: []Pt responded well to session, attentive and engaged. Pt reports feeling chill and neutral this morning as pt has been consistently feeling better. Pt shared he is stressed about work, but overall he feels more capable of managing his stressors. Pt stated his mental health wins include applying for and receiving short term disability through work and accomplishing his monthly goals this month. When pt was talking about his accomplishments, his affect was full which is progress. Pt appeared to benefit from reflecting on progress. Pt will continue IOP tx to promote gains, improve daily functioning, and increase ability to challenge distortions. Narrative Note: []
--- NOTE | 2023-02-06 09:00 | BH.SGPN.GN ---
Behaviors/Verbalizations/Mental Status: [] Pt eye contact good, neat and casually dressed, motor activity appropriate, speech normal rate and tone, mood anxious and euthymic, congruent affect, thoughts linear and intact, no evidence of delusions or hallucinations. Per pt's symptom tracker, no report of SI, plan, or intent as of this date Client Response/Progress/Benefit: [] Client respond well to session as evidenced by listening attentively to others and sharing thoughts and feelings. Client reported mental health positive as receiving notice that his short-term disability had been approved. Noted this was a major stress relief as he has been struggling financially. Client reported additional positive as taking time to complete additional paperwork he had been putting off. Noted this had been easier than expected which was encouraging. Client stated stressor as wanting to improve his communication with coworkers. Discussed feeling anxious about stepping outside his comfort zone to do so. Seemed to benefit from support from peers. Client to continue IOP to continue use of healthy coping skills, work on continued communication with supports, and prevent decompensation. Narrative Note: []
--- NOTE | 2023-02-06 10:10 | BH.SGPN.GN ---
Behaviors/Verbalizations/Mental Status: [] Eye contact is fair. Motor activity is appropriate. Appearance is casual. Speech is Appropriate. Mood is euthymic. Affect is congruent. Thoughts are linear and logical. No evidence of psychosis. Client Response/Progress/Benefit: [] Client was an attentive during interactive group discussions by writing notes and sharing when prompted. Attentive during psychoeducation on the six types of boundaries (physical, emotional, intellectual, sexual, time, and material) AEB note-taking. Along with peers contributed to interactive discussion on defining what a boundary is in mental health. Client along with peers identified challenges to setting boundaries which included; fear of other's response, guilt, fear of losing relationships, and lack of confidence. Client along with peers identified the benefits to setting boundaries. Client shared struggles with knowing how to set boundaries which is barrier as to why he doesn't set boundaries. Client benefited from increased awareness and insight on the importance/benefit to setting health boundaries. Will continue in IOP to improve confidence, increase healthy coping, and prevent decompensation.
--- NOTE | 2023-02-06 11:10 | BH.SGPN.GN ---
Behaviors/Verbalizations/Mental Status: []Pt alert and oriented, neatly dressed and groomed. Eye contact good. Motor activity appropriate. Speech within normal limits. Affect congruent, mood euthymic. Thoughts linear, logical, no signs of hallucinations or delusions. Client Response/Progress/Benefit: []Pt responded well to session, engaged and contributing. Pt attentive during psychoeducation on the different boundary styles. Pt reports having rigid boundaries which keeps pt from forming close relationships. Able to connect impact current boundary styles impact on functioning. Pt was given a handout on strategies for healthy boundary setting. Appeared to benefit from increasing insight to boundary setting and the impacts on mental health. Pt wants to work on engaging with more people at work. Will continue IOP tx to promote mood stability, combat distortions, and improve work-related functioning. Narrative Note: []
--- NOTE | 2023-02-08 09:00 | BH.SGPN.GN ---
Behaviors/Verbalizations/Mental Status: []Pt alert and oriented, casually dressed and groomed. Eye contact good. Motor activity appropriate. Speech within normal limits. Affect congruent, mood euthymic. Thoughts linear, logical, no signs of hallucinations or delusions. Reviewed pt?s symptom tracker, no suicidal ideation reported, denies plan, or active intent as of 02/08/23. Client Response/Progress/Benefit: []Pt responded well to session, open to processing with group and engaged. Pt reports feeling tired this morning. Shared a current mental health win as finally scheduling his ADHD and Autism testing. Indicated this feels like a step in the right direction. Noted an additional win as bonding with his new cat but that this is also a stressor as his other cat is becoming territorial and has started having accidents in the home. Identified plans to contact the vet for advice. Pt appeared to benefit from supportive feedback of the group, as well as reflecting on mental health wins. Pt will continue IOP tx to promote mood stability, improve consistency of self-care, and continue to improve functioning. Narrative Note: []
== END 2023-02-09 23:59 ==
LOC: BHIOP 07:19
PROVIDERS: PCP Pediatrics; Referring Provider Psychiatry & Neurology Psychiatry; Visit Provider Psychiatry & Neurology Psychiatry
DX: F31.9 Bipolar disorder, unspecified (principal); F41.9 Anxiety disorder, unspecified
CPT/HCPCS: S9480; 90832; 90834; 90853

== ENCOUNTER 2023-02-10 08:29 | Outpatient (RCR) | payer OTHER, SELFPAY ==
[2023-02-10 00:13] VITALS: BP 109/75; PULSE 75
--- NOTE | 2023-02-10 15:12 | BH.COMM ---
Communication Note Communication with Client Communication Note: Pt scheduled for IOP group, individual session and to d/c on this date. However, pt did not show due to oversleeping. Pt call and requested to come in on 02/17/23 for his final IOP day.
--- NOTE | 2023-02-17 10:15 | BH.SGPN.GN ---
Behaviors/Verbalizations/Mental Status: []Pt alert and oriented, casually dressed and groomed. Eye contact good. Motor activity appropriate. Speech within normal limits. Affect congruent, mood content, euthymic. Thoughts linear, logical, no signs of hallucinations or delusions. Client Response/Progress/Benefit: []Pt receptive of session, actively engaged throughout AEB taking notes and listening to discussion. Appeared to connect with group topic of cognitive distortions and the impact of thought patterns on mental health, coping behaviors, and relationships. Pt reports connecting with distortions of overgeneralization, should and must statements, and catastrophizing. Pt stated he struggles with thoughts such as I should've been able to do that or I should've known better. Pt appeared to benefit from gaining insight on distorted thinking patterns and how this impacts overall mental health. Will d/c from IOP tx and continue with outpatient providers to improve distress tolerance, increase healthy communication, and prevent decompensation. Narrative Note: []
--- NOTE | 2023-02-17 11:15 | BH.SGPN.GN ---
Behaviors/Verbalizations/Mental Status: [] Eye contact is good. Motor activity is within normal limits. Appearance is casual. Speech is Appropriate. Mood is euthymic. Affect is congruent. Thoughts are linear and logical. No evidence of psychosis. Client Response/Progress/Benefit: [] Pt was an active participant during group discussions and activity. Pt was placed in a smaller group and participated in quiz-show format in which small groups competed against each-other to answer questions based on identifying, challenging, and reframing cognitive distortions. Pt was engaged in the smaller group, participated in group interactions to brainstorm answers, and appeared to be comprehending cognitive distortions. Stated learning that ?I struggle with several distortions that I was not previously aware of?. Benefited from gaining further insight and awareness of cognitive distortions as well as practicing ways to reframe and challenge thoughts. Will d/c from IOP tx and continue with outpatient counseling to maintain stability, encourage ongoing skill application, and prevent decompensation. Narrative Note: []
--- NOTE | 2023-02-17 15:10 | BH.MDN_ITS ---
Multi-Disciplinary Note Note 30-min Individual: Time Started:: 09:27 Date: 02/17/23 Purpose of session/treatment goals addressed:: The purpose of session was to review tx progress, as well as discuss discharge and aftercare. Eye Contact:: Good Motor Activity:: Appropriate Appearance:: Casual Speech:: Appropriate Mood:: Euthymic and Anxious Affect:: Congruent Thoughts:: Linear, Logical and No evidence of hallucinations/delusions noted Staff Interventions:: motivational interviewing, mindfulness skills, discharge planning, strengths perspective, reviewed DSM-5 and other (reviewed occupational coping plan) Client Response:: Pt reports feeling ?bittersweet? about his last day of IOP tx. Shared feeling he has gained a lot of insight and skills for better managing his mental health but feels he can continue to benefit from ongoing counseling to maintain gains and continue to make progress. Pt discussed areas he has seen progress in as improved mood stability and increased ability to regulate his emotions, improved distress tolerance and is more capable of identifying and challenging distortions and unexpected stressors without reaching point of crisis, improved relationships, and increased sense of optimism. Pt shared he would like to continue to work with his outpatient therapist on improving his comfort with communicating with others as he continues to struggle in this area. Discussed continued stress related to work as well and explained that although he is more capable of managing the fast- paced environment, it is an ongoing stressor. Did well to work with therapist on identifying areas he can continue to advocate for accommodations in, as well as reviewed healthy coping skills for improving his comfort and ability to manage in the moment stressors throughout his shift. Shared feeling confident in his ability to continue to make progress moving forward with these skills in continued outpatient therapist. Risks/Concerns:: No report of active suicidal ideations, plan, or intent as of this date 02/17/23. Progress Toward Goals/Plan:: Pt has made significant progress in IOP. Pt?s overall symptom reduction is 79% since admission with irritability sx decreasing by 25%, depression decreasing by 67%, and self-harming thoughts decreasing 100%, and anxiety reduction of 89%. Pt reports he has increased self-confidence in his ability to continue making progress with consistently applying skills, completing daily responsibilities, managing stressors, emotions, and communicating with his supports. Pt can continue to benefit from weekly counseling to process occupational stressors, managing his emotions, and encouraging ongoing use of healthy communication skills. Pt will discharge from IOP tx today and is scheduled to continue with outpatient providers through [id number]. Pt was seen for outpatient counseling yesterday, 02/16/23, and is scheduled to follow-up with his outpatient psychiatrist in the next 2 weeks. Time Stopped:: 09:57
--- NOTE | 2023-02-17 15:47 | BH.DS_ITS ---
Discharge Summary Demographics Date of Admission:: 01/03/23 Discharge Date: 02/17/23 Presenting Problems at Admission:: the patient is a 17-year-old transgender male with a history of depression, bipolar disorder NOS, and anxiety who was referred to the [facility] behavioral health IOP program after being admitted to [facility] psychiatric unit from December 16 to December 22, 2022 for worsening depression over the past few months. Patient was also seen in the [facility] emergency room on December 06, 2022 and referred to the IOP program but was then admitted prior to starting the program. The patient is currently working at [employer] part-time and last worked a normal schedule about 4 weeks ago. This is a significant trigger to pt?s declining mental health as pt was recently transferred to a new location and does not like it. Shared it is more fast-paced and chaotic than previous location. 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 Reports he would often come home from work and have a meltdown with anger, agitation and suicidal ideation. This ultimately resulted in pt taking a leave of absence from college as well. At time of intake pt endorses sadness, erratic moods when stressed, lack of motivation, worthlessness, anhedonia, decreased appetite with a weight loss of 5 to 10 pounds in the last few months, low energy, decreased concentration, passive thoughts of and fleeting, passive suicidal ideation daily with no plan. He denies active suicidal ideation, homicidal ideation, hallucinations or delusions. He sometimes worries but denies panic attacks. Also denies OCD, trauma and PTSD. Patient states that he feels trapped in a box and not fully present in the moment but denies nightmares, flashbacks, or reexperiencing. Also denies eating disorder. Patient does report periods of impulsivity and increased spending along with the irritability that could be consistent with bipolar. Pt symptom severity and acuity are impacting his educational, occupational, and social functioning, as well as limiting ability to complete daily tasks. Discharge Diagnoses:: 1. Bipolar, NOS 2. Anxiety disorder, NOS 3. Cluster B traits Reason for Discharge:: Pt has accomplished his tx goals AEB his reduction of DSM-5 scores and self-report of improved mood, functioning, and ability to cope with stressors. Pt will continue with outpatient counseling, medication management, and continue to pursue sensory specific services. Treatment Progress During Treatment & Response: Pt has responded well to treatment as evidenced by Pt consistently attending IOP sessions, reduction of DSM-5 scores since admission, and self-report. Pt was always attentive and receptive to learning during group and individual sessions. Pt actively applied coping skills outside of IOP setting and reports overall his mood is improved and he is functioning better both socially and occupationally than he was several months ago. Reports he no longer has active suicidal ideation and is able to feel more hopeful for his future, specifically in regard to making further progress on advocating for and learning more on how to address his social and sensory needs. Pt?s overall symptom reduction is 79% since admission with irritability sx decreasing by 25%, depression decreasing by 67%, and self-harming thoughts decr easing 100%, and anxiety reduction of 89%. Issues Still to be Addressed:: distress tolerance and addressing sensory needs, trauma (past) and ongoing triggers, self-care, emotion regulation, and healthy communication. Discharge Recommendations/Instructions:: Pt will discharge from IOP tx today and is scheduled to continue with outpatient providers through [id number]. Pt was seen for outpatient counseling yesterday, 02/16/23, and is scheduled to follow-up with his outpatient psychiatrist in the next 2 weeks. Discharge Handout
--- NOTE | 2023-02-17 15:47 | BH.AFTERPLAN ---
Aftercare Plan Demographics Treatment End Date:: 02/17/23 Psychiatrist:: Elizabeth Arrieta Psychiatrist Office #:: [phone] [facility]/IOP Therapist:: Mariana Gilliam Therapist Phone #:: [phone] Medications Home Medications testosterone cypionate 200 mg/mL intramuscular oil 200 mg IM UD 12/06/22 norethindrone acetate 5 mg tablet mg 01/04/23 aripiprazole 5 mg tablet (Abilify) 5 mg PO DAILY 01/25/23 Plan Details Progress/Aftercare Plan Details:: Pt has responded well to treatment as evidenced by Pt consistently attending IOP sessions, reduction of DSM-5 scores since admission, and self-report. Pt was always attentive and receptive to learning during group and individual sessions. Pt actively applied coping skills outside of IOP setting and reports overall his mood is improved and he is functioning better both socially and occupationally than he was several months ago. Reports he no longer has active suicidal ideation and is able to feel more hopeful for his future, specifically in regard to making further progress on advocating for and learning more on how to address his social and sensory needs. Pt?s overall symptom reduction is 79% since admission with irritability sx decreasing by 25%, depression decreasing by 67%, and self-harming thoughts decreasing 100%, and anxiety reduction of 89%. Strategies for Success:: 1. Opposite action! Continue to break that cycle of anxiety and depression by challenging yourself to do the anxious thing. Exposure is burr and it will become easier to do the anxious thing the more you practice! 2. Remember that thoughts are thoughts NOT facts! You have power to choose if you give thoughts the time of day or not. Also, remember that just because you feel a certain way, doesn?t mean it?s true! 3. self-care! You deserve to take time for you and you also deserve to face the not so fun self-care 4. Self-compassion! You are human and you will make a mistake?BUT that doesn?t mean you are a failure or not good enough. Give yourself credit for all the small (which are also kind of BIG) areas of progress you are making. 5. Practice deep breathing, calming self-talk, and positive affirmations 6. Remember progress isn?t linear! You may have a setback or bump in the road, but that doesn?t mean you?ve lost all progress. 7. Continue to communicate and challenge yourself to have those conversations with new people! 8. Don?t forget to advocate for your sensory needs and continue to check-in with yourself about those sensory needs! Appointments Appointments/Referrals to Other Services:: Pt will discharge from [facility] tx today and is scheduled to continue with outpatient providers through [id number]. Pt was seen for outpatient counseling yesterday, 02/16/23, and is scheduled to follow-up with his outpatient psychiatrist in the next 2 weeks.
== END 2023-02-17 13:05 | disposition home or self-care (01) ==
LOC: BHIOP 08:29
PROVIDERS: PCP Pediatrics; Referring Provider Psychiatry & Neurology Psychiatry; Visit Provider Psychiatry & Neurology Psychiatry
DX: F31.9 Bipolar disorder, unspecified (principal); F41.9 Anxiety disorder, unspecified
CPT/HCPCS: S9480; 90832; 90853

== ENCOUNTER → 2023-05-29 | Outpatient (CLI) | payer OTHER, SELFPAY | END | disposition home or self-care (01) | LOC: MTLAB 08:14 | PROVIDERS: PCP Pediatrics | DX: Z79.899 Other long term (current) drug therapy (principal) | CPT/HCPCS: 36415; 80178 ==

== ENCOUNTER → 2023-07-10 | Outpatient (CLI) | payer OTHER, SELFPAY ==
--- OUTSIDE RECORDS SUMMARY | 2023-07-10 17:19 | XMS RPT_ITS | CCD ---
Author Name Unknown Address [address] [place] [address] Organization [facility] Care Team Providers Care Dental Chair Assembler Name Role Phone Soraya Willingham Unavailable Unavailable Mert Valenzuela Unavailable Unavailable Beverly Taylor MD Primary Care Provider GRACIELA FUENTES Admitting Unavailable GRACIELA FUENTES Consulting Unavailable GRACIELA FUENTES Attending Unavailable BEVERLY TAYLOR R. Primary Care Unavailable REFERRED, SELF Referring Unavailable LUIS MANUEL, CRYSTAL J Attending Unavailable JANN, BEVERLY Primary Care Unavailable LUIS MANUEL, CRYSTAL J Attending Unavailable LUIS MANUEL, CRYSTAL J Referring Unavailable JANN, BEVERLY Primary Care Unavailable JANN, BEVERLY Primary Care Unavailable LUIS MANUEL, CRYSTAL J Referring Unavailable LUIS MANUEL, CRYSTAL J Attending Unavailable REFERRED, SELF Referring Unavailable LUIS MANUEL, CRYSTAL J Attending Unavailable JANN, BEVERLY Primary Care Unavailable JANN, BEVERLY Primary Care Unavailable JANN, BEVERLY Attending Unavailable REFERRED, SELF Referring Unavailable JANN, BEVERLY Primary Care Unavailable LUIS MANUEL, CRYSTAL J Attending Unavailable REFERRED, SELF Referring Unavailable JANN, BEVERLY Primary Care Unavailable JANN, BEVERLY Attending Unavailable REFERRED, SELF Referring Unavailable LUIS MANUEL, CRYSTAL J Attending Unavailable JANN, BEVERLY Primary Care Unavailable REFERRED, SELF Referring Unavailable REFERRED, SELF Referring Unavailable JANN, BEVERLY Primary Care Unavailable JANN, BEVERLY Attending Unavailable MERT VALENZUELA Primary Care Unavailable Allergies Allergy Classification Reported Allergen(s) Allergy Type Date of Onset Reaction(s) Facility (5 sources) Penicillins; Translations: [Penicillins] Allergy to drug (finding) 9 Tori [facility] (1 source) ALLERGIES NOT ON FILE; Translations: [ALLERGIES NOT ON FILE] Propensity to adverse reactions (disorder) [facility] Medications Current Medications Medication Drug Class(es) Dates Sig (Normalized) Sig (Original) BD SHARPS CONTAINER HOME MISC (1 source) Start: 03-31-2022 End: 03-31-2023 BD SHARPS CONTAINER HOME MISC PLEASE DISPENSE ONE SHARPS CONTAINER 1 Each 5 03/31/2022 03/31/2023 Active buPROPion hydrochloride 75 mg oral tablet (2 sources) Aminoketone Start: 06-07-2022 buPROPion (WELLBUTRIN) 75 MG tablet TAKE 1 TABLET DAILY 90 Tablet 0 06/07/2022 Active Completed/Discontinued Medications Medication Drug Class(es) Dates Sig (Normalized) Sig (Original) terbinafine hydrochloride 10 mg/ml topical cream (1 source) Allylamine Antifungal Start: 12-17-2019 Terbinafine HCl - 1 % External Cream APPLY 2-3 TIMES DAILY TO AFFECTED AREA(S). 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] Onset: 03-10-2022 Chronic Mood disorders (4 sources) Mild major depression; Translations: [Major depressive disorder, single episode, mild] Onset: 05-25-2021 05-25-2021 Chronic Mycoses (1 source) Tinea corporis; Translations: [Tinea corporis] Episodic Other aftercare (2 sources) Other exterminator termite (current) drug therapy; Translations: [Other exterminator termite (current) drug therapy] Onset: 05-09-2023 Episodic Other endocrine disorders (3 sources) Disorder of endocrine system; Translations: [Endocrine disorder, unspecified] Onset: 06-22-2022 Episodic Other female genital disorders (1 source) Suppression of menstruation; Translations: [Other specified conditions associated with female genital organs and menstrual cycle] Episodic Residual codes; unclassified (1 source) Gender identity finding; Translations: [Other specified health status] Onset: 06-22-2022 06-22-2022 Episodic Past or Other Problems Problem Classification Problem Date Documented Da te Episodic/Chronic Other gastrointestinal disorders (2 sources) Slow transit constipation; Translations: [Slow transit constipation] Onset: 02-14-2019 Resolved: 11-29-2020 11-29-2020 Episodic NEGATED: Highlighted row has not occurred!Residual codes; unclassified (3 sources) Disease Episodic Results Test Name Value Interpretation Reference Range Facil ity Vital Signs Date Time Vital Sign Value Performing Clinician Panfilo simms 12-17-2019 12:20-0400 BMI (Body Mass Index) 21.95 kg/m2 Soraya Willingham [facility] Work Phone: 12-17-2019 12:20-0400 Body Temperature 98.71 [degF] Soraya Willingham [facility] Work Phone: 12-17-2019 12:20-0400 Body weight 47.62 kg [facility]aya Willingham [facility] Work Phone: 12-17-2019 12:20-0400 BP Diastolic 68 mm[Hg] [facility] Work Phone: Encounters Encounter Date Encounter Type Care Provider Facility Start: 05-09-2023 End: 05-10-2023 ambulatory [facility] Start: 04-05-2023 End: 04-05-2023 ambulatory [facility] Start: 03-03-2023 End: 03-03-2023 ambulatory [facility] Start: 01-02-2023 End: 01-02-2023 ambulatory SELF REFERRED [facility] Start: 12-16-2022 End: 12-22-2022 [facility]: 12-06-2022 ambulatory SELF REFERRED [facility] Start: 09-21-2022 End: 09-22-2022 ambulatory [facility] Start: 08-29-2022 End: 08-29-2022 ambulatory [facility] Start: 06-22-2022 End: 06-23-2022 ambulatory AUDIE ISSA [facility] Start: 06-22-2022 End: 06-22-2022 Subsequent hospital visit by physician Audie Issa MD Work Phone: [facility] Procedures Date Procedure Procedure Detail Performing Clinician Start: 05-09-2023 CBC panel - Blood by Automated count MERT VALENZUELA Start: 05-09-2023 Comprehensive metabo lic 2000 panel - Serum or Plasma MERT ALEXA Start: 05-09-2023 Cyanocobalamin vitamin b-12 MERT ALEXA Start: 05-09-2023 FOLATE MERT RA PIPER Start: 05-09-2023 Hemoglobin A1c/Hemoglobin.total in Blood MERT ALEXA Start: 05-09-2023 HUMAN CHORIONIC GONADOTROPIN, SERUM QUANTITATIVE MERT ALEXA Start: 05-09-2023 IRON AND TIBC MERT R ABER Start: 05-09-2023 Lipid panel MERT RA PIPER Start: 05-09-2023 [place] [Moles/volum e] in Serum or Plasma MERT ALEXA Start: 05-09-2023 VITAMIN D 25-HYDROXY,TOTAL MERT ALEXA Start: 06-22-2022 COMPLETE BLOOD COUNT WITH DIFFERENTIAL Audie Issa MD Work Phone: Start: 06-22-2022 Comprehensive metabo lic panel Audie Issa MD Work Phone: Start: 06-22-2022 Lipid panel Audie Issa MD Work Phone: Start: 06-22-2022 Manual Differential panel - Blood Audie Issa MD Work Phone: Start: 03-10-2022 COMPLETE BLOOD COUNT WITH DIFFERENTIAL Arabella Bassett MD Work Phone: Start: 03-10-2022 Comprehensive metabo lic panel Arabella Bassett MD Work Phone: Start: 03-10-2022 Lipid panel Arabella Bassett MD Work Phone: Start: 03-10-2022 Manual Differential panel - Blood Arabella Bassett MD Work Phone: Start: 12-17-2019 Follow-up visit Start: 10-11-2019 End: 10-11-2019 Follow-up visit Plan of Treatment Date Care Activity Detail Author Start: 12-23-2024 Tetanus Diphtheria and Pertussis Vaccines (7 - Tdap) Tetanus Diphtheria and Pertussis Vaccines (7 - Tdap) [facility] Start: 09-21-2022 End: 09-21-2022 Patient encounter procedure 09/21/2022 Office Visit Adolescent [place] [address] Adolescent Medicine [facility] Start: 05-25-2022 Well Visit Well Visit [facility] Start: 03-31-2022 End: 03-31-2022 Patient encounter procedure 03/31/2022 Office Visit Adolescent Medicine Arabella Yap MD [address] [facility] [address] [place] [address] Adolescent Medicine [facility] Start: 02-10-2022 FLU (#1) FLU (#1) [facility] Start: 10-16-2021 Hearing Screening Hearing Screening [facility] Start: 04-20-2021 COVID-19 (3 - Booster for Pfizer series) COVID-19 (3 - Booster for Pfizer series) [facility] Start: 01-13-2021 COVID-19 (3 - Booster for Pfizer series) COVID-19 (3 - Booster for Pfizer series) [facility] End: 03-10-2022 17 Alpha Hydroxyprogesterone 17 Alpha Hydroxyprogesterone Lab Timed Menstrual suppression Gender dysphoria in adult 1 Occurrences starting 03/10/2022 until 03/10/2022 [facility] Work Phone: Immunizations Immunization Date Immunization Notes Care Provider Fa cility 07-19-2021 meningococcal B vacc ine, recombinant, OMV, adjuvanted Arabella Bassett MD Work Phone: [facility] 05-25-2021 meningococcal B vacc ine, recombinant, OMV, adjuvanted Arabella Bassett MD Work Phone: [facility] 05-25-2021 meningococcal polysaccharide (groups A, C, Y and W-135) diphtheria toxoid conjugate vaccine (MCV4P) Arabella Bassett MD Work Phone: [facility] 04-04-2017 human papilloma viru s vaccine, quadrivalent Arabella Bassett MD Work Phone: [facility] 03-03-2015 Human Papillomavirus 9-valent vaccine Arabella Bassett MD Work Phone: [facility] 12-23-2014 diphtheria, tetanus toxoids and acellular pertussis vaccine Arabella Bassett MD Work Phone: [facility] 12-23-2014 Human Papillomavirus 9-valent vaccine Arabella Bassett MD Work Phone: [facility] 12-23-2014 meningococcal polysaccharide (groups A, C, Y and W-135) diphtheria toxoid conjugate vaccine (MCV4P) Arabella Bassett MD Work Phone: [facility] 11-27-2012 varicella virus vaccine Enrrique Bassett MD Work Phone: [facility] 10-16-2008 diphtheria, tetanus toxoids and acellular pertussis vaccine Arabella Bassett MD Work Phone: [facility] 07-31-2008 hepatitis A vaccine, pediatric/adolescent dosage, 2 dose schedule Arabella Bassett MD Work Phone: [facility] 07-21-2008 measles, mumps and rubella virus vaccine Arabella Bassett MD Work Phone: [facility] 07-21-2008 poliovirus vaccine, inactivated Arabella Bassett MD Work Phone: [facility] 10-23-2006 hepatitis A vaccine, pediatric/adolescent dosage, 2 dose schedule Arabella Bassett MD Work Phone: [facility] 10-23-2006 pneumococcal conjuga te vaccine, 13 valent Arabella Bassett MD Work Phone: [facility] 10-23-2006 varicella virus vaccine Enrrique Bassett MD Work Phone: [facility] 01-25-2005 diphtheria, tetanus toxoids and acellular pertussis vaccine Arabella Bassett MD Work Phone: [facility] 01-25-2005 haemophilus influenz ae type b vaccine, PRP-T conjugate Arabella Bassett MD Work Phone: [facility] 10-19-2004 measles, mumps and rubella virus vaccine Arabella Bassett MD Work Phone: [facility] 05-11-2004 diphtheria, tetanus toxoids and acellular pertussis vaccine Arabella Bassett MD Work Phone: [facility] 05-11-2004 haemophilus influenz ae type b vaccine, PRP-T conjugate Arabella Bassett MD Work Phone: [facility] 05-11-2004 hepatitis B vaccine, pediatric or pediatric/adolescent dosage Arabella Bassett MD Work Phone: [facility] 05-11-2004 pneumococcal conjuga te vaccine, 13 valent Arabella Bassett MD Work Phone: [facility] 05-11-2004 poliovirus vaccine, inactivated Arabella Bassett MD Work Phone: [facility] 02-24-2004 diphtheria, tetanus toxoids and acellular pertussis vaccine Arabella Bassett MD Work Phone: [facility] 02-24-2004 haemophilus influenz ae type b vaccine, PRP-T conjugate Arabella Bassett MD Work Phone: [facility] 02-24-2004 pneumococcal conjuga te vaccine, 13 valent Arabella Bassett MD Work Phone: [facility] 02-24-2004 poliovirus vaccine, inactivated Arabella Bassett MD Work Phone: [facility] 2003 diphtheria, tetanus toxoids and acellular pertussis vaccine Arabella Bassett MD Work Phone: [facility] 2003 haemophilus influenz ae type b vaccine, PRP-T conjugate Arabella Bassett MD Work Phone: [facility] 2003 poliovirus vaccine, inactivated Arabella Bassett MD Work Phone: [facility] 2003 pneumococcal conjuga te vaccine, 13 valent Arabella Bassett MD Work Phone: [facility] 2003 hepatitis B vaccine, pediatric or pediatric/adolescent dosage Arabella Bassett MD Work Phone: [facility] 2003 hepatitis B vaccine, pediatric or pediatric/adolescent dosage Arabella Bassett MD Work Phone: [facility] Payers Date Payer Category Payer Unknown [id number] 2018 Unknown [id number] 2003 Unknown [id number] 2.16. [id number] 2003 Unknown [id number] 2.16. [id number] 2003 Unknown [id number] 2.16. [id number] 2003 Unknown [id number] 2.16. [id number] 2003 Unknown [id number] 2.16. [id number] 2003 Unknown [id number] 2.16. [id number] 2003 Unknown [id number] 2.16. [id number] 2003 Unknown [id number] 2.16. [id number] 2003 Unknown [id number] 2.16. [id number] 2003 Unknown [id number] 2.16. [id number] 2003 Unknown [id number] Private Health Insurance [id number] Social History Date Type Detail Facility Start: 03-10-2022 Tobacco smoking status CAIS Smokes tobacco daily [facility] History of tobacco use Cigarette Smoker [facility] History of tobacco use Tobacco Use Types Packs/Day Years Used Date Smoking Tobacco: Every Day Cigarettes 0 Vaping Passive Smoke Exposure: Yes Smokeless Tobacco: Current [facility] History of tobacco use Passive smoker [facility] Start: 03-10-2022 Tobacco use and exposure User of smokeless tobacco [facility] Start: 03-10-2022 End: 06-22-2022 Alcohol intake Lifetime non-drinker (finding) [facility] Start: 2003 Sex Assigned At Not on file [facility] Start: 02-28-2022 End: 06-22-2022 Exposure to SARS-CoV-2 (event) Not sure [facility] NEGATED: Highlighted row - - [facility] Work Phone: Functional Status Date Assessment Result Facility NEGATED: Highlighted row Functional performance Functional status health issues are not documented Disease [facility] Work Phone: Mental Status Date Assessment Result Facility NEGATED: Highlighted row Cognitive function [Interpretation] Cognitive status health issues are not documented Disease [facility] Work Phone: Evaluation note Note Date & Type Note Facility documented in this encounter [facility] Evaluation note Note Date & Type Note Facility documented in this encounter [facility] Summary Purpose Family History No Family History Records FoundNo Family History Records FoundNo Family History Records FoundNo Family History Records FoundNo Family History Records FoundNo Family History Records Found Advance Directives No Advanced Directives Records FoundNo Advanced Directives Records FoundNo Advanced Directives Records FoundNo Advanced Directives Records FoundNo Advanced Directives Records FoundNo Advanced Directives Records Found Additional Source Comments INFORMATION SOURCE (unrecogn ized section and content) DATE CREATED AUTHOR AUTHOR'S ORGANIZ ATION 11/19/2018 [facility] DATE CREATED AUTHOR AUTHOR'S ORGANIZ ATION 01/03/2020 [employer] DATE CREATED AUTHOR AUTHOR'S ORGANIZ ATION 12/24/2022 [facility] DATE CREATED AUTHOR AUTHOR'S ORGANIZ ATION 04/07/2023 [facility] DATE CREATED AUTHOR AUTHOR'S ORGANIZ ATION 05/15/2023 [facility] Care Teams (unrecognized sec tion and content) Dental Chair Assembler Relationship Specialty Start Date End Date Beverly Taylor MD [address] [place] [address] PCP - General Pediatrics 09/15/20 FOR RECORDS PERTAINING TO PATIENTS WHO ARE OR HAVE BEEN ENROLLED IN A CHEMICAL DEPENDENCY/SUBSTANCEABUSE PROGRAM, SOME INFORMATION MAY BE OMITTED. This clinical summary was aggregated from multiple sources. Caution should be exercised in using it in the provision of clinical care. This summary normalizes information from multiple sources, and as a consequence, information in this document may materially change the coding, format and clinical context of patient data. In addition, data may be omitted in some cases. CLINICAL DECISIONS SHOULD BE BASED ON THE PRIMARY CLINICAL RECORDS. [facility] [employer] [facility]. provides no warranty or guarantee of the accuracy or completeness of information in this document.
[2023-07-10 17:34] LABS: Absolute Lymphocyte Count 1.84 X10^3/uL (0.83-4.51); Absolute Neutrophil Count 5.7 X10^3/uL (2.0-7.7); Basophil# 0.04 X10^3/uL; Basophil% 0.5 % (0-1); Hematocrit 45.5 % (37-47); Hemoglobin 14.1 g/dL (12.0-15.0); Lymphocyte # 1.84 X10^3/ul (0.83-4.51); Lymphocyte % 22.9 % (19-41); Mean Corpuscular Hgb 27.2 pg (27.0-32.0); Mean Corpuscular Volume 87.7 fL (81-99); Mean Platelet Vol. 8.3 fl (6.2-12.0); Monocyte# 0.48 X10^3/uL; NRBC Flagged by Analyzer 0 % (0-5); Neutrophil # 5.65 X10^3/uL (2.7-7.7); Neutrophil % 70.4 % (47-70); Platelet Count 317 K/mm3 (150-450); RBC Distribution Width CV 13.6 % (11.6-14.6); RBC Distribution Width SD 43.5 fl (35.1-43.9); Red Blood Count 5.19 M/mm3 (4.2-5.4)
[2023-07-10 18:17] LABS: Ferritin 6 ng/mL (8-252); Iron 40 ug/dL (50-170); Iron Binding Capacity,Total 524 ug/dL (250-450); PERCENT IRON SATURATION 7.6 % (15.0-55.0)
== END | disposition home or self-care (01) ==
PROVIDERS: PCP Pediatrics; Referring Provider Pediatrics; Visit Provider Pediatrics
DX: E61.1 Iron deficiency (principal)
CPT/HCPCS: 36415; 82728; 83540; 83550; 85025

== ENCOUNTER 2024-01-22 12:53 | Outpatient (CLI) | payer OTHER, SELFPAY ==
[2024-01-22 15:13] LABS: Hematocrit 42.7 % (37-47); Hemoglobin 13.9 g/dL (12.0-15.0); Mean Corp Hgb Conc 32.6 g/dL (32-36); Mean Corpuscular Hgb 29.8 pg (27.0-32.0); Mean Corpuscular Volume 91.6 fL (81-99); Mean Platelet Vol. 8.7 fl (6.2-12.0); Platelet Count 265 K/mm3 (150-450); RBC Distribution Width CV 11.9 % (11.6-14.6); RBC Distribution Width SD 39.8 fl (35.1-43.9); Red Blood Count 4.66 M/mm3 (4.2-5.4); White Blood Count 5.4 K/mm3 (4.4-11.0)
[2024-01-22 15:38] LABS: Vitamin B12 953 pg/mL (211-911); Vitamin D,25 Hydroxy 71.8 ng/mL
[2024-01-22 16:01] LABS: ALB/GLOB Ratio 1.2 RATIO (0.9-2.4); AST(SGOT) 18 U/L (15-37); Alanine Aminotransfer ALT/SGPT 17 U/L (13-56); Albumin, Serum 3.7 g/dL (3.2-5.0); Alkaline Phosphatase 58 U/L (45-117); Anion Gap 4 (5-15); BUN 8 mg/dL (7-18); Calcium,Total 9.2 mg/dL (8.5-10.1); Chloride 108 mmol/L (98-107); Cholesterol 150 mg/dL (200); Creatinine, Serum 0.67 mg/dL (0.55-1.02); EST Glomerular Filtration Rate 120 mL/min (>60); Est Glom Filt Rate - Afr Amer 145 mL/min (>60); Globulin 3.2 g/dL (2.2-4.2); Glucose 90 mg/dL (74-106); High Density Lipoprotein 74 mg/dL; Protein, Total 6.9 g/dL (6.4-8.2); Sodium Level 138 mmol/L (136-145); T4 Free Direct 0.82 ng/dL (0.76-1.46); Thyroid Stim Hormone (TSH) 0.69 uIU/mL (0.358-3.74); Triglycerides 45 mg/dL; Very Low Density Lipoprotein 9 mg/dL (5-40)
[2024-01-22 17:12] LABS: Hemoglobin A1c 4.5 % (3.8-5.6)
== END 2024-01-22 23:59 | disposition home or self-care (01) ==
LOC: MTLAB 13:00
PROVIDERS: PCP Pediatrics
DX: R53.83 Other fatigue (principal); E34.9 Endocrine disorder, unspecified; Z79.899 Other long term (current) drug therapy
CPT/HCPCS: 36415; 80053; 80061; 82306; 82607; 83036; 84403; 84439; 84443; 85027